=== PATIENT | male | born 1950 | race Caucasian/White ===

== ENCOUNTER → 2017-08-02 | Outpatient (CLI) | payer MEDICARE ==
[2017-08-02 08:56] LABS: HGB 14.2 gm/dL (13.0-17.5); MCH 30.8 pg (25.0-35.0); MCV 93.4 fL (80.0-100.0); Mean Platelet Volume 6.7; Platelet Count 364 k/uL (150-450); WBC 5.1 k/uL (3.8-10.6)
[2017-08-02 09:01] LABS: Anion Gap 12 mmol/L; Blood Urea Nitrogen 12 mg/dL (9-20); Calcium 9.6 mg/dL (8.4-10.2); Carbon Dioxide 28 mmol/L (22-30); Chloride 102 mmol/L (98-107); Glucose 113 mg/dL (74-99); Potassium 4.9 mmol/L (3.5-5.1); Sodium 142 mmol/L (137-145)
[2017-08-02 11:30] LABS: Basophils # (M) 0.05 k/uL (0-0.2); Eosinophils # (M) 0.31 k/uL (0-0.7); Lymphocytes # (M) 2.55 k/uL (1.0-4.8); Monocytes # (M) 0.46 k/uL (0-1.0); Neutrophils # (M) 1.73 k/uL (1.3-7.7); Neutrophils % (M) 34 %; Nucleated Red Blood Cells 0 /100 WBC (0-0); Total Cells Counted 100
[2017-08-02 11:31] LABS: Anisocytosis (M) Present; Poikilocytosis (M) Present
== END | disposition home or self-care (01) ==
LOC: LABWHC1 07:40
PROVIDERS: ATTEND Psychiatry & Neurology Neurology
DX: G40.911 Epilepsy, unspecified, intractable, with status epilepticus (principal)
CPT/HCPCS: 36415; 80048; 80183; 85025

== ENCOUNTER → 2018-06-02 | Outpatient (CLI) | payer MEDICARE ==
[2018-06-02 10:56] LABS: Basophils # (A) 0.1 k/uL (0-0.2); Basophils % (A) 1 %; Eosinophils # (A) 0.2 k/uL (0-0.7); Eosinophils % (A) 2 %; HCT 43.3 % (39.0-53.0); Lymphocytes # (A) 2.1 k/uL (1.0-4.8); Lymphocytes % (A) 30 %; MCH 31.9 pg (25.0-35.0); MCHC 32.4 g/dL (31.0-37.0); MCV 98.5 fL (80.0-100.0); Mean Platelet Volume 6.4; Monocytes # (A) 0.6 k/uL (0-1.0); Monocytes % (A) 8 %; Neutrophils % (A) 57 %; Platelet Count 341 k/uL (150-450); RDW 13.4 % (11.5-15.5); WBC 7.1 k/uL (3.8-10.6)
[2018-06-02 16:56] LABS: Anion Gap 4.5 mmol/L (4.00-12.00); Calcium 9.3 mg/dL (8.7-10.3); Carbon Dioxide 29.5 mmol/L (21.6-31.8); Potassium 4.7 mmol/L (3.5-5.5)
[2018-06-02 19:41] LABS: Carbamazepine (Tegretol) 3.3 ug/mL (4.0-12.0)
== END | disposition home or self-care (01) ==
LOC: LABWHC1 10:10
PROVIDERS: ATTEND Psychiatry & Neurology Neurology
DX: G50.0 Trigeminal neuralgia (principal)
CPT/HCPCS: 36415; 80048; 80156; 85025

== ENCOUNTER 2020-01-25 07:55 | Emergency (ER) | payer MEDICARE ==
[2020-01-25 07:59] VITALS: RESP 18; TEMP 98.6
[2020-01-25] MEDS ORDERED: DOCUSATE 283 MG/5 ML ENEMA RECTAL STA (08:28)
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
--- NOTE | 2020-01-25 09:13 | XR ---
EXAMINATION TYPE: XR KUB DATE OF EXAM: 01/25/2020 Comparison: None Clinical History: 69-year-old male Constipation Findings: Mild to moderate overall stool burden. Atherosclerotic calcifications within the pelvis. No evidence for free intraperitoneal air. No dilated small bowel or differential air-fluid levels. Impression: Mild to moderate stool burden. Nonobstructive bowel gas pattern. No free air.
[2020-01-25 09:53] VITALS: BP 130/76; PULSE 73
== END 2020-01-25 09:52 | disposition home or self-care (01) ==
LOC: EC 07:55
DX: K59.00 Constipation, unspecified (principal); G35 Multiple sclerosis; F17.200 Nicotine dependence, unspecified, uncomplicated; Z79.899 Other long term (current) drug therapy; Z79.82 Long term (current) use of aspirin
CPT/HCPCS: 74018; 99284

== ENCOUNTER 2023-02-27 08:01 | Emergency (ER) | payer OTHER, MEDICARE ==
[2023-02-27] MEDS ORDERED: ACETAMINOPHEN TAB 500 MG TAB PO STA (08:04)
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
[2023-02-27 08:27] VITALS: TEMP 98.2
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
[2023-02-27 09:18] VITALS: BP 162/81; PULSE 68; RESP 16
== END 2023-02-27 09:47 | disposition home or self-care (01) ==
LOC: EC 08:01
DX: M54.2 Cervicalgia (principal); V89.2XXA Person injured in unspecified motor-vehicle accident, traffic, initial encounter; Y92.410 Unspecified street and highway as the place of occurrence of the external cause; F17.200 Nicotine dependence, unspecified, uncomplicated
CPT/HCPCS: 70450; 72125; 99285